=== PATIENT | female | born 1965 | race Caucasian/White ===

== ENCOUNTER → 2016-08-12 | Outpatient (CLI) | payer OTHER ==
--- NOTE | 2016-08-12 14:55 | XR ---
EXAMINATION TYPE: 5 view cervical spine. 3 views right shoulder. DATE OF EXAM: 08/12/2016 2:45 PM COMPARISON: NONE HISTORY: 51-year-old female chronic right neck and shoulder pain, cervical sprain FINDINGS: Cervical spine: Scattered mild facet and uncovertebral joint arthropathy. No predental space widening or prevertebral soft tissue swelling. There is normal alignment. Odontoid view is normal. There is very mild bony neuroforaminal narrowing on the left at C3-C4 and C4-C5 and minimal on the ri ght at C3-C4 and C4-5. Right shoulder: AC joint appears intact. Subacromial space is preserved. No tendinous or bursal calcifications. Relat ively smooth delineation to the greater tuberosity. No acute fracture or dislocation. COMBINED IMPRESSION: 1. Cervical spine: Mild multilevel spondylotic change. No malalignment or acute osseous abnormality s een. 2. Right shoulder: No acute osseous abnormality seen.
== END ==
LOC: RADXRMAIN 14:25
PROVIDERS: ATTEND Emergency Medicine
DX: S43.401A Unspecified sprain of right shoulder joint, initial encounter (principal); M47.812 Spondylosis without myelopathy or radiculopathy, cervical region
CPT/HCPCS: 72050

== ENCOUNTER → 2016-10-06 | Outpatient (CLI) | payer OTHER ==
--- NOTE | 2016-10-07 11:48 | MM ---
Reason for exam: screening (asymptomatic). Last mammogram was performed 1 year and 2 months ago. History: Family history of breast cancer in sister at age 50 and breast cancer in paternal cousin. Cancelled Right US Needle Biopsy of the right breast, December 23, 2006. Took hormonal contraceptives for 3 years beginning at age 19. Physical Findings: A clinical breast exam by your physician is recommended on an annual basis and results should be correlated with mammographic findings. MG 3D Screening Mammo W/Cad Bilateral CC and MLO view(s) were taken. Prior study comparison: August 06, 2015, bilateral MG screening mammo w CAD. April 03, 2014, bilateral MG screening mammo w CAD. September 29, 2012, bilateral digital screening mammo w/CAD. The breast tissue is heterogeneously dense. This may lower the sensitivity of mammography. Finding: There is a 25 mm circumscribed round mass in the outer quadrant, posterior position of the right breast and a 16mm oval, circumscribed lesion just anterior to this and a 31mm oval, lesion in the left breast middle depth outer aspect. New finding and increase in size since August 06, 2015, April 03, 2014, and September. ASSESSMENT: Incomplete: need additional imaging evaluation, BI-RAD 0 RECOMMENDATION: Targeted Ultrasound of both breasts. [facility] will attempt to contact patient to return for supplemental views and ultrasound if indicated. ANÍBAL
== END | disposition home or self-care (01) ==
LOC: RADMAMWWP 16:32
PROVIDERS: ATTEND Family Medicine
DX: Z12.31 Encounter for screening mammogram for malignant neoplasm of breast (principal)
CPT/HCPCS: 77063; G0202

== ENCOUNTER → 2016-10-19 | Outpatient (CLI) | payer OTHER ==
--- NOTE | 2016-10-20 08:10 | USB ---
Reason for exam: additional evaluation requested from abnormal screening. History: Family history of breast cancer in sister at age 50 and breast cancer in paternal cousin. Cancelled Right US Needle Biopsy of the right breast, December 23, 2006. Took hormonal contraceptives for 3 years beginning at age 19. Physical Findings: Nurse did not find any significant physical abnormalities on exam. US Breast Workup Limited MARIAH Right breast ultrasound demonstrates a 1.9cm oval, cystic lesion at 8 o'clock and a 2.7cm oval, cystic lesion at 10 o'clock, 9cm from nipple. Left breast ultrasound demonstrates a 2.9 x 1.0 x 2.4cm cystic lesion with debris at 1 o'clock and a 2.3cm oval, cystic lesion at 1 o'clock. These results were verbally communicated with the patient and result sheet given to the patient on 10/19/16. ASSESSMENT: Probably benign, BI-RAD 3 Benign, BI-RAD 2 finding in the right breast. Probably benign, BI-RAD 3 finding in the left breast. RECOMMENDATION: Ultrasound of the left breast in 6 months.
== END | disposition home or self-care (01) ==
LOC: RADUSWWP 15:28
PROVIDERS: ATTEND Family Medicine
DX: R92.8 Other abnormal and inconclusive findings on diagnostic imaging of breast (principal); Z80.3 Family history of malignant neoplasm of breast

== ENCOUNTER → 2016-10-28 | Outpatient (CLI) | payer OTHER ==
--- NOTE | 2016-10-29 10:07 | MR ---
EXAMINATION TYPE: MR shoulder RT wo con DATE OF EXAM: 10/28/2016 COMPARISON: Plain film 08/12/2016 HISTORY: shoulder pain getting worse x 5 months TECHNIQUE: Multiplanar, multisequence imaging of the right shoulder is performed without contrast. FINDINGS: Rotator Cuff: Inferior aspect of the rotator cuff shows a focal area of increased signal on T2-weight ed sequences compatible with a partial thickness tear, rim rent tear at the undersurface of the supra spinatus. There is fluid signal in the subacromial subdeltoid bursa. Acromioclavicular Joint: Hypertrophic change causes mass effect on the musculotendinous junction of s upraspinatus. Suspect there is a distal acromial spur. Glenohumeral Joint: Intact. Labrum: The anterior labrum superiorly shows some mild abnormal increased signal, irregularity, diffi cult to exclude a small tear. Biceps Tendon: Shows appropriate position in the bicipital groove, difficult to exclude a longitudina l tear, suggestion of longitudinal abnormal increased signal is present within the tendon at the leve l of the bicipital groove Bone marrow signal: No focal abnormal marrow signal is appreciated. Other: No additional significant abnormality is appreciated. IMPRESSION: Findings suggest a rim rent tear at the undersurface of the supraspinatus tendon. Correlate for impin gement. There may be a small degenerative tear of the anterior labrum. Findings along the long head o f biceps tendon as described. Additional findings above.
== END | disposition home or self-care (01) ==
LOC: RADMRIMAIN 20:31
PROVIDERS: ATTEND Emergency Medicine
DX: S46.011D Strain of muscle(s) and tendon(s) of the rotator cuff of right shoulder, subsequent encounter (principal); M25.811 Other specified joint disorders, right shoulder; S13.4XXD Sprain of ligaments of cervical spine, subsequent encounter; R20.9 Unspecified disturbances of skin sensation

== ENCOUNTER 2017-04-05 07:18 | Day surgery (SDC) | payer OTHER ==
[2017-03-31 16:34] VITALS: BMI 31.2
[~2017-04-05 07:18] MED LIST: LACTATED RINGERS 1,000 ML IV SCH; LIDOCAINE 1% 20 ML VIAL (10MG/ML) FOR IV START INTRADERMA PRN
[2017-04-05 07:44] VITALS: TEMP 97.3
[2017-04-05] MEDS ORDERED: PROPOFOL 10 MG/ML 20 ML VIAL IV ONE (08:34)
--- NOTE | 2017-04-05 09:00 | P.PCN ---
Date of Procedure: 04/05/17 Preoperative Diagnosis: Prior history colon polyp Postoperative Diagnosis: Diverticuli, internal hemorrhoids, rectal polyp biopsy obtained probable hyperplastic Procedure(s) Performed: Colonoscopy with biopsy rectal area Anesthesia: MAC Surgeon: Debbie Junior Estimated Blood Loss (ml): 0 IV fluids (ml): 500 Pathology: other (Cold biopsy rectal polyp) Condition: stable Disposition: PACU Indications for Procedure: Prior history of colon polyp patient unsure as to where in the colon Operative Findings: Diverticuli, internal hemorrhoids, polypoid change rectum biopsy obtained Description of Procedure: Patient was taken to the endoscopy suite and following sedation rectal exam was performed. Patient was noted to have adequate sphincter tone no masses. Colonoscope was passed through the anus into the rectum. Was passed through the sigmoid colon up to the splenic flexure transverse colon hepatic flexure right colon down to the area of the cecum. Circumferential observation mucosa did not reveal any lesions of concern in the cecum or right colon. No lesions of concern noted in the transverse colon. No lesions of concern in the left colon. Scattered diverticuli had been identified in the sigmoid colon. As the scope was brought to the rectum where it appeared to be hyperplastic change was identified and cold biopsy was obtained. There were several hyperplastic- appearing changes in the rectal area. 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 The scope was retroflexed and internal hemorrhoids identified. Impression/plan: 1. Internal hemorrhoids 2. Hyperplastic change in the rectum biopsy obtained 3. Scattered diverticuli Plan: 1. Conservative management 2. Depending on results of the biopsy repeat scope in 5-7 years
--- NOTE | 2017-04-05 09:01 | P.DS ---
Providers Attending physician: Debbie Junior Primary care physician: Wero Martell Plan - Discharge Summary New Discharge Prescriptions: No Action Levothyroxine Sodium [Synthroid] 150 mcg PO QAM Multivitamins, Thera [Multivitamin (formulary)] 1 tab PO DAILY Diclofenac Epolamine [Flector 1.3% Patch] 1 patch TRANSDERM DAILY Cyanocobalamin [Vitamin B-12 Injection] 1,000 mcg SQ WEEKLY [id number] [id number] [Excedrin] 1 each PO Q4HR Ergocalciferol [Vitamin D2] 50,000 unit PO Q7D Discharge Medication List Levothyroxine Sodium [Synthroid] 150 mcg PO QAM 12/25/13 [History] [id number] [phone] [Excedrin] 1 each PO Q4HR 03/31/17 [History] Cyanocobalamin [Vitamin B-12 Injection] 1,000 mcg SQ WEEKLY 03/31/17 [History] Diclofenac Epolamine [Flector 1.3% Patch] 1 patch TRANSDERM DAILY 03/31/17 [ History] Ergocalciferol [Vitamin D2] 50,000 unit PO Q7D 03/31/17 [History] Multivitamins, Thera [Multivitamin (formulary)] 1 tab PO DAILY 03/31/17 [History ] Follow up Appointment(s)/Referral(s): Debbie Junior MD [STAFF PHYSICIAN] - As Needed Activity/Diet/Wound Care/Special Instructions: Do not drive today Call office of Dr. Bustillos next week for results of biopsy Discharge Disposition: HOME SELF-CARE
[2017-04-05 09:28] VITALS: BP 130/83; PULSE 81; RESP 18
== END 2017-04-05 09:58 | disposition home or self-care (01) ==
LOC: ORWHC2ENDO 07:18
PROVIDERS: ATTEND Surgery
DX: Z12.11 Encounter for screening for malignant neoplasm of colon (principal); K62.1 Rectal polyp; K57.30 Diverticulosis of large intestine without perforation or abscess without bleeding; K64.8 Other hemorrhoids; Z86.010 Personal history of colon polyps; I10 Essential (primary) hypertension; N60.19 Diffuse cystic mastopathy of unspecified breast; Z79.899 Other long term (current) drug therapy; Z79.82 Long term (current) use of aspirin; Z88.2 Allergy status to sulfonamides; Z88.8 Allergy status to other drugs, medicaments and biological substances; Z88.5 Allergy status to narcotic agent
CPT/HCPCS: 81025; 88305; 45380; J2704

== ENCOUNTER → 2017-04-22 | Outpatient (CLI) | payer OTHER ==
--- NOTE | 2017-04-25 08:28 | USB ---
Reason for exam: follow-up at short interval from prior study. History: Family history of breast cancer in sister at age 50 and breast cancer in paternal cousin. Cancelled Right US Needle Biopsy of the right breast, December 23, 2006. Took hormonal contraceptives for 3 years beginning at age 19. Physical Findings: Nurse Summary: right breast prominent nodularity lateral aspect, left breast palpable at 1 o'clock x 2 -1 x 1.5cm, 2 x 1cm all movable (nurse ts). US Breast LT Left breast ultrasound includes all four quadrants, the retroareolar region and axilla. Finding demonstrates a 2.1 x 2.5 x 1.1cm oval, cystic lesion with debris at 1 o'clock complicated smaller cyst with internal debris, a 1.2 x 1.2 x 0.7cm oval, cystic lesion at 1 o'clock and a 1.4 x 1.2 x 0.8cm oval, cystic lesion at 3 o'clock. These results were verbally communicated with the patient and result sheet given to the patient on 04/22/17. ASSESSMENT: Benign, BI-RAD 2 RECOMMENDATION: Return to routine screening mammogram schedule for both breasts. Back on schedule.
== END | disposition home or self-care (01) ==
LOC: RADUSWWP 15:43
PROVIDERS: ATTEND Surgery
DX: N63.20 Unspecified lump in the left breast, unspecified quadrant (principal)

== ENCOUNTER → 2017-10-20 | Outpatient (CLI) | payer OTHER ==
--- NOTE | 2017-10-26 09:56 | MM ---
Reason for exam: screening (asymptomatic). Last mammogram was performed 1 year ago. History: Family history of breast cancer in sister at age 50 and breast cancer in paternal cousin. Cancelled Right US Needle Biopsy of the right breast, December 23, 2006. Took hormonal contraceptives for 3 years beginning at age 19. Physical Findings: A clinical breast exam by your physician is recommended on an annual basis and results should be correlated with mammographic findings. MG 3D Screening Mammo W/Cad Bilateral CC and MLO view(s) were taken. Prior study comparison: October 06, 2016, bilateral MG 3d screening mammo w/cad. August 06, 2015, bilateral MG screening mammo w CAD. There is an increased in size 32mm equal oval partially circumscribed upper outer posterior mass 8.3cm from nipple. Focal asymmetry right upper outer quadrant. This finding is changed when compared with previous exams. ASSESSMENT: Incomplete: need additional imaging evaluation, BI-RAD 0 RECOMMENDATION: Ultrasound of the right breast. [facility] will attempt to contact patient to return for ultrasound.
== END | disposition home or self-care (01) ==
LOC: RADMAMWWP 16:40
PROVIDERS: ATTEND Family Medicine
DX: Z12.31 Encounter for screening mammogram for malignant neoplasm of breast (principal)
CPT/HCPCS: 77063; 77067

== ENCOUNTER → 2017-11-02 | Outpatient (CLI) | payer OTHER ==
--- NOTE | 2017-11-03 09:58 | USB ---
Reason for exam: additional evaluation requested from abnormal screening. History: Family history of breast cancer in sister at age 50 and breast cancer in paternal cousin. Cancelled Right US Needle Biopsy of the right breast, December 23, 2006. Took hormonal contraceptives for 3 years beginning at age 19. Physical Findings: Nurse Summary: 2cm soft, movable lump right breast 10 o'clock (nurse mj). US Breast Workup Limited RT Right limited breast ultrasound including focal area of concern, retroareolar and axilla demonstrates several benign cystic lesions measuring 1.2cm at 9 o'clock, 0.9cm at 9 o'clock, 2.1cm at 9 o'clock, and 0.9cm at 11 o'clock. 6 month follow up mammogram recommended. These results were verbally communicated with the patient and result sheet given to the patient on 11/02/17. ASSESSMENT: Probably benign, BI-RAD 3 RECOMMENDATION: Follow-up diagnostic mammogram of the right breast in 6 months.
== END | disposition home or self-care (01) ==
LOC: RADUSWWP 06:50
PROVIDERS: ATTEND Family Medicine
DX: R92.8 Other abnormal and inconclusive findings on diagnostic imaging of breast (principal)

== ENCOUNTER → 2018-04-06 | Outpatient (CLI) | payer OTHER ==
--- NOTE | 2018-04-07 07:44 | EST ---
EXERCISE STRESS AGE: 53 SEX: F HT: 60" WT: 157 PROTOCOL: Gui Stress Test STAGE: III DURATION OF EXERCISE: 9:00 HEART RATE REST: 106 BLOOD PRESSURE REST: 110/88 MAXIMUM HEART RATE ACHIEVED: 152 MAXIMUM BLOOD PRESSURE: 176/83 85% MPHR: 142 100% MPHR: 167 METS: 10.5 INDICATIONS: Hypertension/chest pain. CLINICAL INFORMATION: Baseline EKG revealed normal sinus rhythm without significant ST-T changes. Patient walked on a standard Gui protocol for 9 minutes, achieved a maximum heart rate of 152 beats per minute, developed fatigue and shortness of breath. Heart rate was well above 85% of predicted maximal. There were no symptoms of angina. EKG did not reveal any ST- segment changes to indicate ischemia. By EKG criteria, this is a negative stress test with fair exercise capacity with no evidence to suggest ischemia by EKG criteria. MMERLIN / TOÑO: [id number] /
== END | disposition home or self-care (01) ==
LOC: RADNMMAIN 08:40
PROVIDERS: ATTEND Family Medicine
DX: R07.89 Other chest pain (principal)
CPT/HCPCS: 93017

== ENCOUNTER → 2018-06-08 | Outpatient (CLI) | payer OTHER ==
--- NOTE | 2018-06-08 13:08 | XR ---
EXAMINATION TYPE: XR lumbar spine 2 or 3V DATE OF EXAM: 06/08/2018 CLINICAL HISTORY: Chronic low back pain. TECHNIQUE: Frontal and lateral images of the lumbar spine are obtained. COMPARISON: None. FINDINGS: There are 5 lumbar type vertebral bodies identified. The lumbar spine shows satisfactory alignment without evidence of acute fracture or dislocation. Vertebral body heights and disk space he ights are within normal limits. The overlying soft tissue appears unremarkable. IMPRESSION: As above.
== END ==
LOC: RADXRMAIN 12:35
PROVIDERS: ATTEND Family Medicine
DX: M54.5 Low back pain (principal)
CPT/HCPCS: 72100

== ENCOUNTER → 2019-02-23 | Outpatient (CLI) | payer OTHER ==
--- NOTE | 2019-02-23 07:51 | MM ---
Reason for exam: additional evaluation requested from prior study. Last mammogram was performed 1 year and 4 months ago. History: Family history of breast cancer in sister at age 50 and breast cancer in paternal cousin. Cancelled Right US Needle Biopsy of the right breast, December 23, 2006. Took hormonal contraceptives for 3 years beginning at age 19. Physical Findings: Nurse did not find any significant physical abnormalities on exam. MG Diagnostic Mammo w CAD MARIAH Bilateral CC and MLO view(s) were taken. XCCL view(s) were taken of the left breast. Prior study comparison: October 20, 2017, bilateral MG 3d screening mammo w/cad. October 06, 2016, bilateral MG 3d screening mammo w/cad. The breast tissue is heterogeneously dense. This may lower the sensitivity of mammography. There are benign appearing round calcifications bilaterally. There is no discrete abnormality. These results were verbally communicated with the patient and result sheet given to the patient on 02/23/19. ASSESSMENT: Benign, BI-RAD 2 RECOMMENDATION: Routine screening mammogram of both breasts in 1 year.
== END | disposition home or self-care (01) ==
LOC: RADMAMWWP 06:59
PROVIDERS: ATTEND Family Medicine
DX: N60.01 Solitary cyst of right breast (principal); N60.02 Solitary cyst of left breast
CPT/HCPCS: 77066

== ENCOUNTER → 2021-06-01 | Outpatient (CLI) | payer OTHER ==
--- NOTE | 2021-06-01 15:39 | XR ---
Left shoulder HISTORY: Pain 3 views the left shoulder Bone mineralization, joint spaces and alignment are maintained. Left lung apex as visualized is ghada l. No fracture or dislocation. IMPRESSION: No acute abnormality. Shoulder MRI may be of benefit.
== END | disposition home or self-care (01) ==
LOC: LABWHC1 15:09
PROVIDERS: ATTEND Family Medicine
DX: M25.512 Pain in left shoulder (principal)

== ENCOUNTER → 2021-10-12 | Outpatient (CLI) | payer OTHER ==
--- NOTE | 2021-10-13 05:50 | MR ---
EXAMINATION TYPE: MR shoulder LT wo con DATE OF EXAM: 10/12/2021 COMPARISON: None HISTORY: Left shoulder pain Multiplanar multiecho imaging of the left shoulder without contrast. The biceps tendon is intact. Subscapularis tendon is intact. There is some thickening of the anterior glenoid labrum consistent with scarring. Posterior glenoid labrum appears intact. The AC joint is in tact. No significant subacromial impingement. There is small full-thickness tear of the supraspinatus tendon near the attachment on the greater tuberosity. No retraction. The scapula appears intact. The re is some minimal increased fluid and spurring at the AC joint. IMPRESSION: Small full-thickness rotator cuff tear of the supraspinatus tendon. No retraction. Mild deformity of the anterior glenoid labrum consistent with scarring..
== END | disposition home or self-care (01) ==
LOC: RADMRIMAIN 12:31
PROVIDERS: ATTEND Family Medicine
DX: M75.112 Incomplete rotator cuff tear or rupture of left shoulder, not specified as traumatic (principal)

== ENCOUNTER → 2022-04-20 | Outpatient (CLI) | payer OTHER ==
--- NOTE | 2022-04-20 17:46 | US ---
EXAMINATION TYPE: US thyroid st tissue head/neck DATE OF EXAM: 04/20/2022 COMPARISON: EXAMINATION TYPE: US thyroid st tissue head/neck DATE OF EXAM: 04/20/2022 COMPARISON: NONE CLINICAL HISTORY: R22.0 LOCALIZED SWELLING, MASS AND LUMP, HEAD. Lump on rt lateral head adjacent to ear x 9 years. Patient states it is not painful. Technique: Multiple grayscale and color ultrasound Doppler images of the soft tissues of the patient' s right head were obtained. FINDINGS/IMPRESSION: There are 3 ovoid hypoechoic areas with central genic region visualized in ar ea of lump and posterior acoustic shadowing. The largest is measuring 0.8 x 0.8 x 0.6cm. These appear to be benign and may represent epidermal inclusion cysts/pilomatricomas.
== END | disposition home or self-care (01) ==
LOC: RADUSWWP 16:47
PROVIDERS: ATTEND Family Medicine
DX: R22.0 Localized swelling, mass and lump, head (principal)
CPT/HCPCS: 76536